=== PATIENT | male | born 1970 | race African-American/Black ===

== ENCOUNTER 2023-10-01 17:46 | Emergency (ER) | payer SELFPAY ==
[2023-10-01 18:13] VITALS: BP 146/109; PULSE 94; RESP 18; TEMP 98.2; BMI 25.0
[2023-10-01] MEDS ORDERED: KETOROLAC TROMETHAMINE 30 MG/1 ML VIAL ONE (18:54)
[2023-10-01] MEDS ORDERED: CYCLOBENZAPRINE HCL 5 MG TABLET ONE (18:55)
[2023-10-01] MEDS: KETOROLAC TROMETHAMINE 30 MG/1 ML VIAL IM ONE (19:00)
[2023-10-01] MEDS: CYCLOBENZAPRINE HCL 10 MG TABLET (FP) PO ONE (19:00)
== END 2023-10-01 21:26 | disposition home or self-care (01) ==
LOC: FER 17:46
PROC: 3E0233Z Introduction of Anti-inflammatory into Muscle, Percutaneous Approach (ICD-10-PCS; principal; 2023-10-01)
DX: M54.12 Radiculopathy, cervical region (principal); M25.511 Pain in right shoulder; R20.2 Paresthesia of skin; M54.6 Pain in thoracic spine
CPT/HCPCS: 71046-TC-FY; 93005; 99284-25